=== PATIENT | female | born 1995 | race Caucasian/White ===

== ENCOUNTER 2017-01-19 13:05 | Emergency (ER) | payer BC, MEDICAID ==
[~2017-01-19] VITALS: Ht 170.2 cm; Wt 79.8 kg
[2017-01-19] MEDS ORDERED: CEFTRIAXONE 500 MG VIAL ONE (13:22)
[2017-01-19] MEDS ORDERED: PNV11TAB PO (13:23)
[2017-01-19 13:39] LABS: *BILIRUBIN,URIN NEGATIVE (NEGATIVE); *BLOOD, URINE 3+ (NEGATIVE); *CLARITY,URINE CLOUDY (CLEAR); *COLOR,URINE LIGHT YELLOW (YELLOW); *KETONES,URINE NEGATIVE (NEGATIVE); *PROTEIN,URINE 2+ (NEGATIVE); LEUKOCYTE ESTERASE ,URINE 2+ (NEGATIVE); NITRITE, URINE NEGATIVE (NEGATIVE); UGLUCOSE NEGATIVE (NEGATIVE)
[2017-01-19 13:51] LABS: RBC,URINE 80-100 /HPF (0-3)
== END 2017-01-19 14:33 | disposition home or self-care (01) ==
LOC: ER 13:10
DX: N39.0 Urinary tract infection, site not specified (principal); Z90.49 Acquired absence of other specified parts of digestive tract
CPT/HCPCS: 81001; 87086; 99284; A4663; J0696

== ENCOUNTER 2017-09-19 19:34 | Emergency (ER) | payer BC ==
[~2017-09-19] VITALS: Ht 170.2 cm; Wt 81.6 kg
[~2017-09-19 19:34] MED LIST: PNV11TAB PO
[2017-09-19] MEDS ORDERED: predniSONE 50 MG TABLET ONE (20:43)
[2017-09-19] MEDS: predniSONE 50 MG TABLET PO ONE (20:53)
--- NOTE | 2017-09-19 21:00 | NUR ---
Patient discharged to home in stable conditon. Written and verbal after care instructions given. Patient verbalizes understanding of instructions. Patient ambulated out of ER with steady gait, all belongings taken, no acute signs of distress.
[2017-09-19 21:06] VITALS: BP 111/71
== END 2017-09-19 21:07 | disposition home or self-care (01) ==
LOC: ER 19:34
DX: J02.9 Acute pharyngitis, unspecified (principal)
CPT/HCPCS: 36415; 86403; 87070; A4663; J7512

== ENCOUNTER 2018-06-18 18:30 | Emergency (ER) | payer SELFPAY ==
[~2018-06-18] VITALS: Ht 170.2 cm; Wt 81.6 kg
--- NOTE | 2018-06-18 19:06 | NUR ---
Patient discharged to home in stable conditon. Written and verbal after care instructions given. Patient verbalizes understanding of instructions.
[2018-06-18 19:07] VITALS: BP 115/66
== END 2018-06-18 19:07 | disposition home or self-care (01) ==
LOC: ER 18:33
DX: J20.9 Acute bronchitis, unspecified (principal); Z90.49 Acquired absence of other specified parts of digestive tract
CPT/HCPCS: A4663

== ENCOUNTER 2018-11-23 22:49 | Emergency (ER) | payer MEDICAID ==
[~2018-11-23] VITALS: Ht 170.2 cm; Wt 83.5 kg
[2018-11-24] MEDS ORDERED: predniSONE 50 MG TABLET PO ONE (00:45)
--- NOTE | 2018-11-24 00:56 | NUR ---
no distress/ no sob. tolerated 2 cups h20. speaking easily and color good. advised rst and fu pmd in 2 days and return if symptoms increase change or persist
[2018-11-24 00:59] VITALS: BP 113/56
== END 2018-11-24 01:00 | disposition home or self-care (01) ==
LOC: ER 22:54
DX: J20.9 Acute bronchitis, unspecified (principal); R11.10 Vomiting, unspecified; Z90.49 Acquired absence of other specified parts of digestive tract; Z79.899 Other long term (current) drug therapy
CPT/HCPCS: A4663

== ENCOUNTER 2018-12-03 22:12 | Emergency (ER) | payer MEDICAID, OTHER ==
[~2018-12-03] VITALS: Ht 170.2 cm; Wt 81.6 kg
--- NOTE | 2018-12-03 22:38 | NUR ---
Dr. Benito at bedside for MSE.
[2018-12-03 22:58] LABS: BASOPHILS % (AUTO) 0.5 % (0.0-2.0); CREATININE 0.6 mg/dL (0.6-1.3); EOSINOPHILS # (AUTO) 0.1 K/uL (0.0-0.7); EOSINOPHILS % (AUTO) 0.9 % (0.0-7.0); HEMATOCRIT 33.7 % (31.2-41.9); HEMOGLOBIN 10.6 g/dL (10.9-14.3); LYMPHOCYTES # (AUTO) 1.9 K/uL (20.0-40.0); LYMPHOCYTES % (AUTO) 24.6 % (20.5-51.5); MEAN CORPUSCULAR HGB CONC 32 g/dL (32.3-35.6); MONOCYTES # (AUTO) 0.4 K/uL (2.0-10.0); MONOCYTES % (AUTO) 5.6 % (0.0-11.0); NEUTROPHILS # (AUTO) 5.4 K/uL (1.8-8.9); NEUTROPHILS % (AUTO) 68.4 % (38.5-71.5); PLATELET COUNT (AUTO) 360 K/uL (179-408); POTASSIUM 3.8 mmol/L (3.5-5.1); RED BLOOD CELL COUNT(AUTO) 4.81 MIL/uL (3.63-4.92); WHITE BLOOD COUNT (AUTO) 7.9 K/uL (3.8-11.8)
[2018-12-03 23:04] LABS: BILIRUBIN,DIRECT 0.1 mg/dL (0.0-0.2); BILIRUBIN,TOTAL 0.3 mg/dL (0.2-1.0); TOTAL PROTEIN, SERUM 8.1 g/dL (6.4-8.2)
[2018-12-03 23:12] LABS: THYROID STIMULATING HORMONE 2.682 mIU/mL (0.358-3.740)
[2018-12-03 23:17] LABS: BASOPHILS % (MANUAL) 1 % (0-2); EOSINOPHILS % (MANUAL) 1 % (0-8); LYMPHOCYTES % (MANUAL) 24 % (20-40); MONOCYTES % (MANUAL) 6 % (2-10); NEUTROPHILS % (MANUAL) 68 % (42-75)
--- NOTE | 2018-12-03 23:39 | NUR ---
Patient discharged to home in stable conditon. Written and verbal after care instructions given. Patient verbalizes understanding of instructions. Pt ambulated out of ER with steady gait, no acute signs of distress, VSS, all belongings taken.
[2018-12-03 23:40] VITALS: BP 130/64
== END 2018-12-03 23:41 | disposition home or self-care (01) ==
LOC: ER 22:14
DX: R53.1 Weakness (principal); Z90.49 Acquired absence of other specified parts of digestive tract; Z79.899 Other long term (current) drug therapy
CPT/HCPCS: 36415; 84443; 85025; 93005; A4663

== ENCOUNTER 2019-05-02 20:26 | Emergency (ER) | payer OTHER ==
[~2019-05-02] VITALS: Ht 170.2 cm; Wt 81.6 kg
[2019-05-02 21:17] LABS: *BILIRUBIN,URIN NEGATIVE (NEGATIVE); *BLOOD, URINE 1+ (NEGATIVE); *CLARITY,URINE CLEAR (CLEAR); *COLOR,URINE LIGHT YELLOW (YELLOW); *KETONES,URINE NEGATIVE (NEGATIVE); *UROBILINOGEN,URINE 0.2 E.U./dl (NORMAL); LEUKOCYTE ESTERASE ,URINE NEGATIVE (NEGATIVE); NITRITE, URINE NEGATIVE (NEGATIVE); UGLUCOSE NEGATIVE (NEGATIVE)
[2019-05-02 21:18] LABS: *URINE HCG, QUAL NEGATIVE (NEGATIVE)
[2019-05-02 21:25] LABS: RBC,URINE 0-3 /HPF (0-3); SQUAMOUS EPITHELIAL CELL,UR FEW /HPF (NONE SEEN); WBC,URINE 0-3 /HPF (0-3)
--- NOTE | 2019-05-02 21:50 | NUR ---
DR. HENLEY AT BEDSIDE FOR MSE.
[2019-05-02 22:20] LABS: BASOPHILS % (AUTO) 0.6 % (0.0-2.0); EOSINOPHILS # (AUTO) 0.1 K/uL (0.0-0.7); EOSINOPHILS % (AUTO) 1.8 % (0.0-7.0); HEMATOCRIT 31.9 % (31.2-41.9); HEMOGLOBIN 10.1 g/dL (10.9-14.3); LYMPHOCYTES # (AUTO) 1.6 K/uL (20.0-40.0); MEAN CORPUSCULAR HEMOGLOBIN 21.8 uug (24.7-32.8); MEAN CORPUSCULAR HGB CONC 32 g/dL (32.3-35.6); MEAN CORPUSCULAR VOLUME 68.7 fL (75.5-95.3); MONOCYTES # (AUTO) 0.4 K/uL (2.0-10.0); MONOCYTES % (AUTO) 5.9 % (0.0-11.0); NEUTROPHILS # (AUTO) 4.7 K/uL (1.8-8.9); NEUTROPHILS % (AUTO) 68.7 % (38.5-71.5); PLATELET COUNT (AUTO) 287 K/uL (179-408); RED BLOOD CELL COUNT(AUTO) 4.64 MIL/uL (3.63-4.92); WHITE BLOOD COUNT (AUTO) 6.8 K/uL (3.8-11.8)
[2019-05-02 22:21] LABS: CREATININE 0.6 mg/dL (0.6-1.3); POTASSIUM 3.9 mmol/L (3.5-5.1)
[2019-05-02 22:27] LABS: BILIRUBIN,DIRECT 0.1 mg/dL (0.0-0.2); BILIRUBIN,TOTAL 0.2 mg/dL (0.2-1.0); TOTAL PROTEIN, SERUM 7.4 g/dL (6.4-8.2)
--- NOTE | 2019-05-02 23:23 | NUR ---
Patient discharged to home in stable conditon. Written and verbal after care instructions given. Patient verbalizes understanding of instructions. PATIENT LEFT WITH STABLE GAIT.
[2019-05-02 23:25] VITALS: BP 114/60
== END 2019-05-02 23:25 | disposition home or self-care (01) ==
LOC: ER 20:27
DX: R10.31 Right lower quadrant pain (principal); Z90.49 Acquired absence of other specified parts of digestive tract; Z79.899 Other long term (current) drug therapy
CPT/HCPCS: 36415; 83690; 84703; 85025; A4663

== ENCOUNTER 2019-09-20 21:08 | Emergency (ER) | payer MEDICAID, OTHER ==
[~2019-09-20] VITALS: Ht 170.2 cm; Wt 81.6 kg
--- NOTE | 2019-09-20 21:51 | NUR ---
DR LOPEZ AT BEDSIDE FOR MSE
[2019-09-20 22:03] LABS: BASOPHILS % (AUTO) 0.5 % (0.0-2.0); EOSINOPHILS # (AUTO) 0.1 K/uL (0.0-0.7); EOSINOPHILS % (AUTO) 2.2 % (0.0-7.0); HEMATOCRIT 35.5 % (31.2-41.9); HEMOGLOBIN 11.2 g/dL (10.9-14.3); LYMPHOCYTES # (AUTO) 1.7 K/uL (20.0-40.0); LYMPHOCYTES % (AUTO) 24.6 % (20.5-51.5); MEAN CORPUSCULAR HEMOGLOBIN 22.4 uug (24.7-32.8); MEAN CORPUSCULAR HGB CONC 32 g/dL (32.3-35.6); MEAN CORPUSCULAR VOLUME 70.8 fL (75.5-95.3); MONOCYTES # (AUTO) 0.4 K/uL (2.0-10.0); MONOCYTES % (AUTO) 6.1 % (0.0-11.0); NEUTROPHILS # (AUTO) 4.5 K/uL (1.8-8.9); NEUTROPHILS % (AUTO) 66.6 % (38.5-71.5); PLATELET COUNT (AUTO) 317 K/uL (179-408); RED BLOOD CELL COUNT(AUTO) 5.02 MIL/uL (3.63-4.92); WHITE BLOOD COUNT (AUTO) 6.8 K/uL (3.8-11.8)
[2019-09-20 22:04] LABS: *URINE HCG, QUAL NEGATIVE (NEGATIVE)
[2019-09-20 22:06] LABS: CREATININE 0.6 mg/dL (0.6-1.3); POTASSIUM 3.6 mmol/L (3.5-5.1)
[2019-09-20 22:12] LABS: BILIRUBIN,DIRECT 0.1 mg/dL (0.0-0.2); BILIRUBIN,TOTAL 0.3 mg/dL (0.2-1.0); TOTAL PROTEIN, SERUM 8.1 g/dL (6.4-8.2)
[2019-09-20 22:29] VITALS: BP 120/80
--- NOTE | 2019-09-20 22:30 | NUR ---
Patient discharged to home in stable conditon. Written and verbal after care instructions given. Patient verbalizes understanding of instructions. Pt will be picked up via private car. Pt walked out of ER with stable gait.
== END 2019-09-20 22:30 | disposition home or self-care (01) ==
LOC: ER 21:09
DX: R53.1 Weakness (principal); R05 Cough; M79.10 Myalgia, unspecified site; R53.83 Other fatigue; Z90.49 Acquired absence of other specified parts of digestive tract; Z79.899 Other long term (current) drug therapy
CPT/HCPCS: 36415; 84703; 85025; 93005; A4663

== ENCOUNTER 2022-12-01 17:42 | Emergency (ER) | payer MEDICAID ==
[~2022-12-01] VITALS: Ht 167.6 cm; Wt 81.6 kg
--- NOTE | 2022-12-01 18:22 | NUR ---
Pt seen by MD for bedside eval. Safety measures in place. Will continue to monitor.
[2022-12-01 18:50] LABS: MEAN CORPUSCULAR HEMOGLOBIN 23.5 uug (24.7-32.8); MEAN CORPUSCULAR VOLUME 74.4 fL (75.5-95.3); PLATELET COUNT (AUTO) 307 K/uL (179-408)
[2022-12-01 18:58] LABS: CREATININE 0.6 mg/dL (0.6-1.3); POTASSIUM 3.9 mmol/L (3.5-5.1)
[2022-12-01 19:03] LABS: BILIRUBIN,DIRECT 0.1 mg/dL (0.0-0.2); BILIRUBIN,TOTAL 0.2 mg/dL (0.2-1.0); MAGNESIUM 1.9 mg/dL (1.8-2.4); TOTAL PROTEIN, SERUM 7.9 g/dL (6.4-8.2)
--- NOTE | 2022-12-01 19:10 | NUR ---
REPORT RECEIVED FROM HARSH DUMONT.
[2022-12-01] MEDS ORDERED: FERR325T28 PO (19:48)
--- NOTE | 2022-12-01 20:10 | NUR ---
pT A,A AND O X 4 WITH NAD OBSERVED. Patient discharged to home in stable condition. Written and verbal after care instructions given. Patient verbalizes understanding of instructions. Stressed follow up or return to ER for worsening s/s. PT AMB OUT WITH STEADY GAIT.
[2022-12-01 20:12] VITALS: BP 121/63
== END 2022-12-01 20:10 | disposition home or self-care (01) ==
LOC: ER 17:42
DX: D50.9 Iron deficiency anemia, unspecified (principal); R53.83 Other fatigue; Z90.49 Acquired absence of other specified parts of digestive tract; Z79.899 Other long term (current) drug therapy
CPT/HCPCS: 36415; 83550; 83735; 84443; 85025; A4663

== ENCOUNTER 2023-05-01 18:09 | Emergency (ER) | payer MEDICAID ==
[~2023-05-01] VITALS: Ht 167.6 cm; Wt 81.6 kg
[~2023-05-01 18:09] MED LIST changes: +FERR325T28 PO; -PNV11TAB PO
[2023-05-01 19:02] LABS: *BILIRUBIN,URIN NEGATIVE (NEGATIVE); *BLOOD, URINE NEGATIVE (NEGATIVE); *CLARITY,URINE CLEAR (CLEAR); *COLOR,URINE YELLOW (YELLOW); *KETONES,URINE NEGATIVE (NEGATIVE); *PROTEIN,URINE NEGATIVE (NEGATIVE); *URINE HCG, QUAL NEGATIVE (NEGATIVE); *UROBILINOGEN,URINE 0.2 E.U./dl (NORMAL); LEUKOCYTE ESTERASE ,URINE NEGATIVE (NEGATIVE); NITRITE, URINE NEGATIVE (NEGATIVE); PH,URINE 7.5 (5.0-8.0); UGLUCOSE NEGATIVE (NEGATIVE)
[2023-05-01] MEDS ORDERED: PHEN-705 PO (21:20)
[2023-05-02 02:46] VITALS: BP 119/69; TEMP 98.2; O2SAT 98
== END 2023-05-01 22:00 | disposition home or self-care (01) ==
LOC: ER 18:10
DX: R30.0 Dysuria (principal); E87.6 Hypokalemia; Z86.2 Personal history of diseases of the blood and blood-forming organs and certain disorders involving the immune mechanism; Z90.49 Acquired absence of other specified parts of digestive tract; Z79.899 Other long term (current) drug therapy
CPT/HCPCS: 84703; A4663

== ENCOUNTER 2023-08-29 21:04 | Emergency (ER) | payer MEDICAID, OTHER ==
[~2023-08-29] VITALS: Ht 167.6 cm; Wt 81.6 kg
[~2023-08-29 21:04] MED LIST changes: +PHEN-705 PO
[2023-08-30] MEDS ORDERED: AZIT250T PO (02:10)
[2023-08-30 02:42] VITALS: BP 121/66; TEMP 98.5; O2SAT 99
== END 2023-08-30 02:42 | disposition home or self-care (01) ==
LOC: ER 21:07
DX: J20.9 Acute bronchitis, unspecified (principal); D64.9 Anemia, unspecified; Z20.822 Contact with and (suspected) exposure to COVID-19; Z98.890 Other specified postprocedural states; Z79.899 Other long term (current) drug therapy
CPT/HCPCS: 86403; A4606; A4663